=== PATIENT | female | born 2005 | race Caucasian/White ===

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

== ENCOUNTER 2023-04-11 20:33 | Outpatient (CLI) | payer OTHER, MEDICAID, SELFPAY ==
[2023-04-11] VITALS (12 sets, daily range): BP systolic 107–133; BP diastolic 56–77; PULSE 82–99; TEMP 36.3; BMI 26.9
[2023-04-11 21:03] LABS: Nitrazine Paper, PH Negative
[2023-04-11 21:20] LABS: Bacteria Urine 1+ /hpf; Bilirubin Urine Neg (Negative); Blood Urine Neg (Negative); Glucose Urine UA Norm (Normal); Ketones Urine Negative (Negative); Leukocyte Esterase Urine Negative (Negative); Nitrate Urine Negative (Negative); Protein Urine Neg (Negative); Specific Gravity, Urine 1.015 (1.005-1.030); Sulfosalicylic Acid Urine Negative (Negative); Urine Appearance Clear (CLEAR); Urine Color Yellow (Yellow); Urobilinogen Urine Norm (Negative); WBC Urine 0-4 /hpf (0-5); pH Urine 9 (5-7)
[2023-04-11 21:21] LABS: Add Urine Culture? No
[2023-04-11] MEDS: acetaminophen 500 mg Tablet 1000 MG PO (21:42)
[2023-04-11] MEDS: lactated ringers 1,000 ML 999 ML IV (21:42)
== END 2023-04-11 23:46 | disposition home or self-care (01) ==
LOC: OPOB 20:34 → OBGYN 20:35
PROVIDERS: PCP Registered Nurse; Visit Provider Family Medicine
DX: O26.899 Other specified pregnancy related conditions, unspecified trimester (principal); Z3A.00 Weeks of gestation of pregnancy not specified; N89.8 Other specified noninflammatory disorders of vagina
CPT/HCPCS: 36415; 59025; 81001; 83986; 99211; J7120

== ENCOUNTER 2023-04-13 02:38 | Outpatient (CLI) | payer OTHER, MEDICAID, SELFPAY ==
[2023-04-13] VITALS (7 sets, daily range): BP systolic 100–119; BP diastolic 56–75; PULSE 78–87; BMI 26.6
--- NOTE | 2023-04-13 03:30 | USR_ITS ---
PROCEDURE INFORMATION: Exam: US , Limited Exam date and time: 04/13/2023 4:11 AM Age: 17 years old Clinical indication: complicated by abdominal or pelvic pain; Lower; Third trimester (=28 weeks 0 days); Gestational age or lmp: 28 weeks 6days; ; Additional info: Decreased movement, possible leaking of fluid LABS AND CLINICAL REPORTS: Last menstrual period start date: 09/23/2022 Gestational age (Established): 28 w 6 d Estimated due date (Established): 06/30/2023 TECHNIQUE: Imaging protocol: Real-time ultrasound of the maternal uterus with image documentation. Exam focused on the clinical indication. COMPARISON: US OB >= 14 weeks fetus [id number] 02/25/2023 1:39 PM FINDINGS: Gestation: Single viable intrauterine gestation. heart rate: 150 bpm presentation: Cephalic presentation. Placenta: Anterior placenta. MATERNAL: Cervix: Cervical length measures 4.26 cm. US/US OB limited [id number] IMPRESSION: Single viable intrauterine gestation in cephalic presentation.
[2023-04-13 03:33] LABS: Add Urine Culture? No; Bacteria Urine 1+ /hpf; Bilirubin Urine Neg (Negative); Blood Urine Neg (Negative); Glucose Urine UA Norm (Normal); Ketones Urine 1+ (Negative); Leukocyte Esterase Urine Trace (Negative); Nitrate Urine Negative (Negative); Protein Urine Neg (Negative); Specific Gravity, Urine 1.005 (1.005-1.030); Urine Appearance Clear (CLEAR); Urine Color Yellow (Yellow); Urobilinogen Urine Neg (Negative); WBC Urine 0-4 /hpf (0-5); pH Urine 7 (5-7)
--- NOTE | 2023-04-13 04:25 | P.DS_ITS ---
Discharge Providers Date of Discharge: April 13, 2023 Attending Provider at Discharge: Aayush Jimenez MD Primary Care Provider: KATELIN Lucas Reason for Visit Reason for Visit: Decreased mvmt, possible ctx, possible SROM Hospital Course Hospital Course This is a 17-year-old G1, P0 that presents at 28 weeks 4 days with concerns of possible rupture. Patient has been having back and pelvic cramping since yesterday. No vaginal bleeding. Patient states that she has had a small amount of leakage of fluid, but denies any big gush. Patient states that there is decreased movement tonight. Spec was performed and no significant dila tion noted. Small amount of blood noted at cervical os but no fluid collection. Small amount of fluid was tested and was nitrazine negative as well as ferning was negative. Ultrasound was obtained and NICA was normal. heart tones were reassuring and no significant contractions were detected with toco. Contractions were palpated. Patient was reassured and patient was encouraged to use Tylenol and Benadryl to help with pain discomfort. Patient may also consider heating pad. Return to OB ED if problem arise. Physical Exam Const: COMMON NORMALS: no acute distress, average body habitus, patient oriented x3, alert and well nourished Resp: COMMON NORMALS: normal respiratory effort GI: OTHER: Gravid uterus : OB/EXTERNAL & SPECULUM: external exam normal OTHER: Small amount of blood noted at cervical os. Small amount of fluid with no significant collection. Nitrazine negative. Ferning negative Extremity: COMMON NORMALS: normal to inspection and no clubbing, cyanosis or edema Neuro: COMMON NORMALS: patient oriented x3 SENSORIUM/ORIENTATION: Yes alert Psych: COMMON NORMALS: mental status grossly normal, cooperative, normal affect and speech normal SPEECH: Yes normal speech Discharge Data Studies Completed and Pending Pending at discharge Category Date Time Status US OB limited [id number] Stat Ultrasound 04/13/23 03:30 Taken Laboratory Results Urine Color Yellow (Yellow) 04/13/23 02:50 Urine Appearance Clear (CLEAR) 04/13/23 02:50 Urine pH 7 (5-7) 04/13/23 02:50 Ur Specific [place] 1.005 (1.005-1.030) 04/13/23 02:50 Urine Protein Neg (Negative) 04/13/23 02:50 Urine Glucose (UA) Norm (Normal) 04/13/23 02:50 Urine Ketones 1+ (Negative) H 04/13/23 02:50 Urine Blood Neg (Negative) 04/13/23 02:50 Urine Nitrate Negative (Negative) 04/13/23 02:50 Urine Bilirubin Neg (Negative) 04/13/23 02:50 Urine Urobilinogen Neg mg/dL (Negative) 04/13/23 02:50 Ur Leukocyte Esterase Trace (Negative) H 04/13/23 02:50 Urine RBC None /hpf (0-2) 04/13/23 02:50 Urine WBC 0-4 /hpf (0-5) H 04/13/23 02:50 Ur Squamous Epith Cells 10-15 /hpf (0-5) H 04/13/23 02:50 Amorphous Sediment Not Reportable 04/13/23 02:50 Urine Bacteria 1+ /hpf (NONE) H 04/13/23 02:50 Vitals Last Vital Signs Pulse 78 04/13/23 03:54 BP 111/57 04/13/23 03:54 Discharge Plan Discharge Patient Disposition: Home Prescriptions: No Action No Known Home Medications Diet: Usual diet Activity: Limit activity as instructed Patient Instructions: Preeclampsia During (ED), Pelvic Rest (ED), at 27 to 30 Weeks (ED), OB Undelivered Discharge Discharge Attestations Time Spent in Discharge Care*: greater than 30 min Quality Metrics Clinical Quality Measures [ No reported AMI, CVA or VTE this stay] Coding Level of Care Code Acute Code for Chg Fwd Diagnoses
== END 2023-04-13 04:35 | disposition home or self-care (01) ==
LOC: OPOB 02:40 → OBGYN 02:43
PROVIDERS: PCP Registered Nurse; Visit Provider Family Medicine
DX: O36.8190 Decreased fetal movements, unspecified trimester, not applicable or unspecified (principal); Z3A.00 Weeks of gestation of pregnancy not specified; R10.9 Unspecified abdominal pain; N89.8 Other specified noninflammatory disorders of vagina
CPT/HCPCS: 59025; 76815; 81001; 83986; 99211

== ENCOUNTER 2023-04-15 15:20 | Outpatient (CLI) | payer OTHER, MEDICAID, SELFPAY ==
[2023-04-15 15:30] VITALS: BMI 26.2
[2023-04-15 15:36] VITALS: BP 122/68; PULSE 89
[2023-04-15 15:56] VITALS: BP 112/65; PULSE 93
[2023-04-15 16:10] LABS: Add Urine Culture? No; Bilirubin Urine Neg (Negative); Blood Urine Neg (Negative); Glucose Urine UA Norm (Normal); Ketones Urine 1+ (Negative); Mucus Urine 2+ /hpf; Nitrate Urine Negative (Negative); Protein Urine Neg (Negative); RBC Urine RARE /hpf (0-2); Squamous Epithelial Cell Urine 15-25 /hpf (0-5); Sulfosalicylic Acid Urine Negative (Negative); Urine Appearance Hazy (CLEAR); Urine Color Yellow (Yellow); Urobilinogen Urine Neg (Negative); WBC Urine 0-4 /hpf (0-5); pH Urine 8 (5-7)
[2023-04-15 16:11] LABS: Bacteria Urine 1+ /hpf
[2023-04-15 16:12] LABS: Leukocyte Esterase Urine 1+ (Negative)
[2023-04-15 16:17] VITALS: BP 115/71; PULSE 85
[2023-04-15 16:26] VITALS: BP 115/71; PULSE 85
== END 2023-04-15 16:25 | disposition home or self-care (01) ==
LOC: OPOB 15:28 → OBGYN 15:29
PROVIDERS: Absent Provider Family Medicine; Family Provider Family Medicine; PCP Registered Nurse; Visit Provider Family Medicine
DX: O26.899 Other specified pregnancy related conditions, unspecified trimester (principal); Z3A.00 Weeks of gestation of pregnancy not specified; R10.9 Unspecified abdominal pain
CPT/HCPCS: 59025; 81001; 99211

== ENCOUNTER 2023-05-12 16:48 | Outpatient (CLI) | payer OTHER, MEDICAID, SELFPAY ==
[2023-05-12 16:54] VITALS: BP 138/62; PULSE 88; RESP 17
[2023-05-12 16:56] VITALS: BMI 26.6
[2023-05-12 17:12] VITALS: BP 120/65; PULSE 79
[2023-05-12 17:36] VITALS: BP 120/65; PULSE 79
== END 2023-05-12 17:37 | disposition home or self-care (01) ==
LOC: OPOB 16:49 → OBGYN 16:50
PROVIDERS: Family Provider Family Medicine; PCP Registered Nurse; Visit Provider Family Medicine
DX: O26.899 Other specified pregnancy related conditions, unspecified trimester (principal); Z3A.00 Weeks of gestation of pregnancy not specified; M54.50 Low back pain, unspecified; R10.9 Unspecified abdominal pain
CPT/HCPCS: 59025; 99211

== ENCOUNTER 2023-06-10 02:48 | Outpatient (CLI) | payer OTHER, MEDICAID, SELFPAY ==
[2023-06-10] VITALS (8 sets, daily range): BP systolic 119–137; BP diastolic 64–78; PULSE 79–101; RESP 17; BMI 28.8
== END 2023-06-10 04:13 | disposition home or self-care (01) ==
LOC: OPOB 02:49 → OBGYN 02:49
PROVIDERS: Family Provider Family Medicine; PCP Registered Nurse; Visit Provider Family Medicine
DX: O26.899 Other specified pregnancy related conditions, unspecified trimester (principal); Z3A.00 Weeks of gestation of pregnancy not specified; R10.9 Unspecified abdominal pain
CPT/HCPCS: 59025; 99211

== ENCOUNTER 2023-06-15 21:37 | Outpatient (CLI) | payer OTHER, MEDICAID, SELFPAY ==
[2023-06-15 21:37] VITALS: BMI 29.0
[2023-06-15 21:51] VITALS: BP 130/72; PULSE 100
[2023-06-15 21:55] VITALS: TEMP 35.7
[2023-06-15 22:08] VITALS: BP 147/73; PULSE 98
[2023-06-15 22:22] VITALS: BP 120/62; PULSE 98
[2023-06-15 22:36] VITALS: BP 115/66; PULSE 71
[2023-06-15 22:51] VITALS: BP 117/75; PULSE 83
[2023-06-15] MEDS: acetaminophen 500 mg Tablet 1000 MG PO (23:03)
== END 2023-06-15 23:08 | disposition home or self-care (01) ==
LOC: OPOB 21:38 → OBGYN 21:38
PROVIDERS: Family Provider Family Medicine; PCP Registered Nurse; Visit Provider Family Medicine
DX: O26.899 Other specified pregnancy related conditions, unspecified trimester (principal); Z3A.00 Weeks of gestation of pregnancy not specified; R10.9 Unspecified abdominal pain
CPT/HCPCS: 59025; 83986; 99211

== ENCOUNTER 2023-06-21 07:15 | Outpatient (CLI) | payer OTHER, MEDICAID, SELFPAY ==
[2023-06-21 07:15] VITALS: BMI 29.5
[2023-06-21 07:22] VITALS: BP 137/69; PULSE 122
[2023-06-21 07:43] VITALS: BP 109/68; PULSE 92
== END 2023-06-21 07:55 | disposition home or self-care (01) ==
LOC: OPOB 07:16 → OBGYN 07:17
PROVIDERS: PCP Registered Nurse; Visit Provider Family Medicine
DX: O26.899 Other specified pregnancy related conditions, unspecified trimester (principal); Z3A.00 Weeks of gestation of pregnancy not specified; Z91.81 History of falling
CPT/HCPCS: 59025; 99211

== ENCOUNTER 2023-06-21 07:58 | Emergency (ER) | payer OTHER, SELFPAY ==
[2023-06-21 08:03] VITALS: BP 144/83; PULSE 84; RESP 18; TEMP 36.8; O2SAT 99; BMI 29.5
--- NOTE | 2023-06-21 08:08 | W.ED.BACK ---
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 States been having low back pain since then its worse with movement she rates it a 6 out of 10. Patient is 38 weeks she was cleared by OB. Rates her pain a 4 out of 10 denies any difficulty ambulating. Associated symptoms: Deny abdominal pain, chills, dysuria, fever(s), nausea or vomiting Review of Systems Const: Denies: fever(s), chills, body aches or change in appetite ENMT: Denies: throat pain or dental pain Card: Denies: chest pain Resp: Denies: dyspnea GI: Denies: abdominal pain, nausea, vomiting or diarrhea : Denies: dysuria Musc: Reports: back pain; Denies: neck pain Skin/Breast: Denies: rash Neuro: Denies: headache(s) PFSH ED PFSH: Social History Smoking and tobacco/nicotine status: never used tobacco/nicotine Physical Exam Const: COMMON NORMALS: no acute distress, patient oriented x3 and healthy appearing HENMT: COMMON NORMALS: normocephalic and atraumatic HEAD & SCALP: normocephalic and atraumatic Neck/C-Spine: COMMON NORMALS: full ROM and supple Chest: COMMONS NORMALS: normal inspection of the chest Resp: COMMON NORMALS: normal respiratory effort Cardio: COMMON NORMALS: regular rate, regular rhythm and No murmurs present (Cardio) RATE: regular rate RHYTHM: regular rhythm GI: COMMON NORMALS: Soft to palpation and no masses PALPATION: Yes Soft to palpation OTHER: gravid uterus Back/Pelvis: OTHER: Lower lumbar tenderness no midline tenderness Extremity: COMMON NORMALS: normal to inspection and full ROM Neuro: COMMON NORMALS: patient oriented x3, moves all extremities and no focal motor deficits Psych: COMMON NORMALS: mental status grossly normal, Normal thought process present and cooperative THOUGHT PROCESS: Normal thought process present Skin: COMMON NORMALS: no rashes or lesions noted and no wounds GENERAL SKIN EXAM: no rashes or lesions noted Course Vital Signs: Vital signs: Vital Signs Temperature 98.3 F 06/21/23 08:03 Pulse Rate 84 06/21/23 08:03 Respiratory Rate 18 06/21/23 08:03 Blood Pressure 144/83 06/21/23 08:03 Pulse Oximetry 99 06/21/23 08:03 Oxygen Delivery Me thod Room Air 06/21/23 08:03 MDM - Back Pain/Injury Medical Decision Making Patient presents here with low back pain she is well-appearing here she is stable for discharge she is to take Tylenol ice return if worsening. Medical Records I reviewed the patient's medical records. No radiology studies performed this visit Discharge Plan Discharge Patient Disposition: Home Clinical Impression: Low back strain Qualifiers: Encounter type: initial encounter Qualified Code(s): S39.012A - Strain of muscle, fascia and tendon of lower back, initial encounter Condition: Stable Prescriptions: No Action 60-0.8 mg Tablet 1 tab PO DAILY Discharge Orders: Discharge ED (Routine); Ordered 06/21/23 Ordered By: Latoya Turner Referrals: Pamela Penaloza FNP [Primary Care Provider] - Discharge Diet: Advance as tolerated Discharge Activity: Resume usual activity Patient Instructions: Low Back Strain (ED) Coding Level of Care Code ED Adult Basic Education Manager for Calli Zaragoza
[2023-06-21] MEDS: acetaminophen 325 mg Tablet 650 MG PO (08:13)
== END 2023-06-21 08:17 | disposition home or self-care (01) ==
PROVIDERS: Emergency Provider Emergency Medicine; PCP Registered Nurse
DX: O9A.213 Injury, poisoning and certain other consequences of external causes complicating pregnancy, third trimester (principal); S39.012A Strain of muscle, fascia and tendon of lower back, initial encounter; Z3A.38 38 weeks gestation of pregnancy; X50.1XXA Overexertion from prolonged static or awkward postures, initial encounter; Y99.0 Civilian activity done for income or pay
CPT/HCPCS: 99283

== ENCOUNTER 2023-06-26 04:08 | Inpatient (IN) | payer OTHER, MEDICAID, SELFPAY ==
[2023-06-25] VITALS (7 sets, daily range): BP systolic 128–133; BP diastolic 70–82; PULSE 82–108; RESP 16; TEMP 35.9–36.7; BMI 28.6
[2023-06-25 20:55] LABS: Actim Prom Positive
[2023-06-25 21:42] LABS: Basophils % 0.3 %; Eosinophils # 0.1 10^3/uL (0.0-0.8); Eosinophils % 0.9 %; Hematocrit 33.9 % (36-47); Lymphocytes # 1.5 10^3/uL (1.5-6.5); Lymphocytes % 14.6 %; Mean Corpuscular HGB Conc 30.1 g/dL (30-55); Mean Corpuscular Hemoglobin 23.2 pg (27-33); Mean Platelet Volume 10.6 fL (7.4-10.4); Monocytes # 0.7 10^3/uL (0.2-0.9); Monocytes % 6.7 %; Neutrophils # 7.78 10^3/uL (1.8-8.0); Nucleated Red Blood Cells % 0 %; Platelet Count 259 10^3/cmm (157-399); Red Cell Distribution Width 15.1 % (12.1-15.1); White Blood Count 10.11 10^3/uL (4.5-13.0)
[2023-06-25 23:32] LABS: Nitrazine Paper, PH Inconclusive
[2023-06-26] VITALS (121 sets, daily range): BP systolic 89–150; BP diastolic 43–102; PULSE 65–142; RESP 15–20; TEMP 35.5–37.7; O2SAT 97–100
[2023-06-26] MEDS: fentaNYL 50 mcg/mL INJ 2mL IVP ×3 (01:55→04:00)
[2023-06-26] MEDS: dextrose 5%-lactated ringers 1,000 ML 125 ML IV ×2 (03:58→13:43)
[2023-06-26] MEDS: lactated ringers 1,000 ML 999 ML IV ×3 (04:35→17:15)
[2023-06-26] MEDS: ondansetron 2 mg/ML SDV 2 mL 4 MG IVP ×3 (04:37→21:51)
[2023-06-26] MEDS: ROPivacaine syringe 100 MG/50 ML SYRINGE 10 MG EPIDURAL ×3 (05:45→13:42)
--- NOTE | 2023-06-26 05:53 | P.ANESASSM_ITS ---
Pre-Anesthetic Assessment Height/Weight: Height 1.75 m Weight 87.997 kg Temp Pulse Resp BP Pulse Ox O2 Del Method 96.6 F L 107 H 16 115/68 98 Room Air 06/25/23 22:53 06/26/23 05:51 06/26/23 04:00 06/26/23 05:47 06/26/23 05:51 06/26/23 05:00 Epidural Familial anesthetic complications: None Was Beta Leonarda taken within 24 hours: N/A Was Clonidine taken within 24 hours: N/A Social No alcohol and No tobacco Exam alert, oriented x 3, clear to auscultation bilaterally and regular rate & rhythm Airway Submandibular: within normal limits Cervical ROM: within normal limits Mallampati: Class III Dentition: full History/ROS No significant history except as noted and No significant complaints Pulmonary None reported CV/HEM None reported None reported Hepatic None reported GI None reported Metabolic None reported Musc/skel Lower Back Pain Neuropsych Anxiety Anesthetic Plan ASA status: 2 Anesthesia: Anesthesia Evaluation and Regional (specify below) (Epidural) Risk of > 500 ml blood loss (7ml/kg in children): No Medications/Allergies Home Medications Medication Instructions Recorded Confirmed Last Taken Type vit with calcium-iron 1 tab PO DAILY 04/13/23 06/15/23 06/15/23 History fum-folic acid 60 mg-0.8 mg tablet Allergies Allergy/AdvReac Type Severity Reaction Status Date / Time No Known Allergies Allergy Verified 06/21/23 08:08 Current Medications Generic Name Dose Route Start Last Admin Trade Name Freq PRN Reason Stop Dose Admin Fentanyl 25 - 100 mcg 06/25/23 21:16 06/26/23 04:00 Fentanyl 50 Mcg/Ml Inj 2ml IVP 75 mcg Q1H PRN Administration SEVERE PAIN Dextrose/Lactated Ringer's 1,000 mls @ 125 mls/hr 06/25/23 21:30 06/26/23 03:58 Dextrose 5%-Lactated Ringers IV 125 mls/hr .Q8H DUSTIN Administration Lactated Ringer's 1,000 mls @ 999 mls/hr 06/26/23 01:34 06/26/23 04:35 Lactated Ringers IV 999 mls/hr .Q1H1M PRN Administration See label comments Ondansetron HCl 4 mg 06/25/23 21:16 06/26/23 04:37 Ondansetron 2 Mg/Ml Sdv 2 Ml IVP 4 mg Q4H PRN Administration NAUSEA AND VOMITING PFSH Anesthesia Social History Smoking and tobacco/nicotine status: never used tobacco/nicotine Female Reproductive History : 1 Data Anesthesia 06/25/23 21:30 Short CBC 06/25/23 Range/Units 21:30 WBC 10.11 (4.5-13.0) 10^3/uL Hgb 10.20 L (12.4-14.8) g/dL Hct 33.9 L (36-47) % MCV 77.0 L (85-98) fl Plt Count 259 (157-399) 10^3/cmm Neut % (Auto) 77.0 % Neut # (Auto) 7.78 (1.8-8.0) 10^3/uL Blood Bank 06/25/23 21:00 Blood Type A Positive Rho(D) Type Rh positive Antibody Screen Negative Cardiac Studies: 2 No Data to Display
--- NOTE | 2023-06-26 05:55 | ANES.PROC ---
Anesthesia Procedures Procedure/Date: 06/26/23 Epidural: Time Out Performed: Yes Consents Signed: Procedure Consent and NPO Consent Consent: requested by attending/covering physician, from patient, risks and benefits reviewed and patient agrees to proceed Lumbar Level: L3-L4 Epidural position: sitting Epidural procedure: sterile prep of area (betadine), 1% lidocaine to numb the area (3 mLs), neg for paresthesia, test dose given, 1.5% xylocaine 1:200k epi (3 mL/2 mL), 0.2% Ropivacaine bolus ml (5 mLs), placed PCEA, no systemic response, sterile dressing applied, L.U.D. no apparent complications and 0.2% Ropiavacaine @ mls/hr (10 mLs/hr) Additional Comments: MAG 9cm, catheter threaded to 14cm, 100mcg fentanyl given via epidural after placement
--- NOTE | 2023-06-26 07:24 | P.HP_ITS ---
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 Patient states that she had a gush of fluid around 5 PM on June 25. On arrival the patient was amelia every 3 to 5 minutes. The patient was admitted for rupture of membranes and labor. Patient continued to to progress slowly overnight and this morning obtained a epidural for pain control. heart tones have been reassuring. Patient's care was unremarkable and appropriate. Patient is GBS negative Present Details : 1 Para: 0 Dating criteria OB: LMP confirmed by 1st trimester US care: good care Obstetrical complications: none Labs Rubella: Non-Immune RPR: Negative GBS: Negative HBsAG: Negative Review of Systems 2 Const: Denies: fever(s), chills, body aches or change in appetite ENMT: Denies: throat pain or dental pain Card: Denies: chest pain Resp: Denies: dyspnea GI: Denies: abdominal pain, nausea, vomiting or diarrhea : Denies: dysuria Musc: Reports: back pain; Denies: neck pain Skin/Breast: Denies: rash Neuro: Denies: headache(s) Medications/Allergies Home Medications Medication Instructions Recorded Confirmed Last Taken Type vit with calcium-iron 1 tab PO DAILY 04/13/23 06/26/23 06/15/23 History fum-folic acid 60 mg-0.8 mg tablet Allergies Allergy/AdvReac Type Severity Reaction Status Date / Time No Known Allergies Allergy Verified 06/21/23 08:08 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 2 PFSH: Social History Smoking and tobacco/nicotine status: never used tobacco/nicotine History History History 2 1 Term 0 0 Miscarriages/Ectopic 0 Living Children 0 Vitals/I&O/Wt Last Vital Signs Temp 96.6 F L 06/25/23 22:53 Pulse 72 06/26/23 07:22 Resp 16 06/26/23 04:00 BP 112/53 06/26/23 07:22 Pulse Ox 98 06/26/23 07:21 O2 Del Method Room Air 06/26/23 06:23 06/25/23 06/26/23 06/26/23 22:59 06:59 14:59 Intake Total 1000 / 1000 Balance 1000 / 1000 Weight last 48 hrs Weight 87.997 kg Physical Exam 2 Const: COMMON NORMALS: no acute distress, average body habitus, patient oriented x3, alert and well nourished Resp: COMMON NORMALS: normal respiratory effort GI: OTHER: Gravid uterus Extremity: COMMON NORMALS: normal to inspection and no clubbing, cyanosis or edema Neuro: COMMON NORMALS: patient oriented x3 SENSORIUM/ORIENTATION: Yes alert Psych: COMMON NORMALS: mental status grossly normal, cooperative, normal affect and speech normal SPEECH: Yes normal speech Urinary Catheter Management: Owens: Cath Placed During This Visit: yes Reason for Continuing Indwelling Catheter: Accurate Measurement of Urinary Output in Critically Ill Patients Urinary Catheter Date of Insertion: 06/26/23 Urinary Catheter Time of Insertion: 06:20 Data 06/25/23 21:30 Results Labs OB ([facility]): 2 Obstetrics 04/13/23 Blood Type A Positive 06/25/23 Antibody Screen Negative 06/25/23 Hct 33.9 % (36-47) L 06/25/23 Hgb 10.20 g/dL (12.4-14.8) L 06/25/23 Rho(D) Type Rh positive 06/25/23 Plt Count 259 10^3/cmm (157-399) 06/25/23 Hep Bs Antibody 3.5 (11.5-1000) L 11/20/21 Rubella IgG Antibody 12.1 IU/mL (0.0-10.0) H 11/20/21 VZV IgG Antibody 695.40 index 11/20/21 Ser , Semi-Qnt 80043.00 mIU/mL 12/26/22 A&P Assessment and plan (1) Primigravida in third trimester: (2) Rupture of membranes with clear amniotic fluid: Continue with routine labor management. If consistent change is not noted then we will augment labor with Pitocin. Plan for delivery within 24 hours rupture membranes. (3) 39 weeks gestation of : Attestations 2 Medical Necessity Statement*: Admit for labor and rupture of membranes. Anticipate 2 midnight stay. Coding Level of Care Code Acute Code for Chg Fwd Diagnoses Primigravida in third trimester Z34.03 Rupture of membranes with clear amniotic fluid 39 weeks gestation of Z3A.39
[2023-06-26] MEDS: ampicillin 2,000 MG in sodium chloride 0.9% (plus) 50 ML 100 MG IV (16:21)
[2023-06-26] MEDS: acetaminophen 325 mg Tablet 650 MG PO (16:22)
--- NOTE | 2023-06-26 17:14 | PM.OPHPUD ---
Labor & Delivery H&P Update Date of Procedure: June 26, 2023 Date H&P Performed: 06/26/23 Changes to previous documentation: The patient did progress to complete dilation. Patient had started pushing and pushed for 1.5 hours with no significant progress. Patient started developing and elevated temperature at 99 7 with chills. Patient was having [place] uterine tenderness. This was suspicious for chorioamnionitis the patient was started on amp and gent. Patient continues to push with no further progress over the next hour with no further change. Discussed options with the patient and she opted to proceed with primary low-transverse for failure to progress. Admission Diagnosis: Primary indication for procedure: Failure to progress Planned procedure: Primary low-transverse
--- NOTE | 2023-06-26 17:45 | PC.NURSE ---
VAGINAL PREP IN OR PRIOR TO CASE START
--- NOTE | 2023-06-26 18:45 | PM.OP ---
Operative Report Date of procedure: June 26, 2023 Pre-op diagnosis: Failure to progress, term intrauterine , prolonged rupture of membranes Post-op diagnosis: Same, viable female Procedure done: Primary low-transverse Surgeon: Aayush Jimenez MD Anesthesia: Epidural Estimated blood loss: 400cc IV fluids (mL): 700 Urine output: 200 Brief History: This is a 17-year-old G1, P1 presented at 39 weeks with rupture membranes. Patient had progressed to completion but was unable to delivery vaginally and was taken for primary low-transverse Procedure: Patient was taken to the operating room where epidural anesthesia was found to be adequate. She was prepped and draped in the normal sterile fashion in a dorsal supine position with a leftward tilt. Skin incision was made with scalpel and carried out to the underlying layer of fascia which was incised in the midline. Fascial incision was then extended laterally with Rasmussen scissors bilaterally. The superior aspect of the fascial incision was grasped with [place] clamps elevated and dissected off the rectus muscles with Rasmussen's. The inferior aspect of the fascial incision was grasped with [place]'s and in likewise manner was elevated and dissected off with Rasmussen's. Peritoneum was then entered digitally and extended with good visualization of the bladder. Bladder blade was then inserted. Uterine incision was then created in a transverse fashion in the lower uterine segment with scalpel and extended digitally. Amniotic sac was a round with Allis clamp. Clear fluid noted. 's head was delivered atraumatically nose and mouth suctioned with bulb, cord clamped and cut and handed off to waiting nursing staff. The placenta was then expressed and uterus exteriorized from the abdomen. And cleared of all clots and debris. Uterine incision was then repaired in a running locked fashion with 0 Vicryl. A second suture of the same was then used to imbricate the incision. Excellent hemostasis was noted. Uterus was then returned to the abdomen, gutters were cleared of all clots and debris and wound was irrigated. Peritoneum was then closed in a running fashion with 3-0 Vicryl. Fascia was then closed with 0 Vicryl in a running fashion. Subcutaneous tissue was closed with 3-0 Vicryl and skin was closed with 4-0 Monocryl on a Nazario needle. The incision was reinforced with Steri-Strips and pressure bandage was over the wound. Sponge, laps, and needle count was correct x2. Patient was given ampicillin prior to the procedure for treatment for chorioamnionitis. Patient was taken recovery in stable condition.
[2023-06-27] MEDS: ketorolac 30 mg/mL INJ IVP ×2 (01:27→08:35)
[2023-06-27 05:08] VITALS: TEMP 37.7
[2023-06-27] MEDS: HYDROcodone-acetaminophen 5-325 mg Tablet PO ×3 (05:30→20:25)
[2023-06-27] MEDS: docusate sodium 100 mg Capsule PO ×2 (07:47→20:23)
[2023-06-27] MEDS: prenatal vitamin Capsule 1 CAP PO (07:47)
[2023-06-27 08:30] VITALS: BP 110/78; PULSE 98; TEMP 37.3
[2023-06-27 08:35] LABS: Hematocrit 26.7 % (36-47); Mean Corpuscular HGB Conc 30.7 g/dL (30-55); Mean Corpuscular Hemoglobin 23.4 pg (27-33); Mean Corpuscular Volume 76.1 fl (85-98); Mean Platelet Volume 10.7 fL (7.4-10.4); Platelet Count 174 10^3/cmm (157-399); Red Blood Count 3.51 10^6/uL (3.85-5.65); Red Cell Distribution Width 15.5 % (12.1-15.1); White Blood Count 9.44 10^3/uL (4.5-13.0)
--- NOTE | 2023-06-27 10:41 | PM.OBGYPN ---
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 Patient is doing well. The patient is ambulating without difficulty. The patient is urinating with no issues. Lochia has been appropriate. Pain is well-controlled Labor: Station: +2 Amniotic Membrane Status: Leaking Monitor Mode: Palpation Contraction Pattern: Regular Status: Category II Post /CS: [place] baby status: doing well and nursing well [place] feeding status: exclusively breast feeding Vitals/I&O/Wt Last Vital Signs Temp 99.9 F H 06/27/23 05:08 Pulse 85 06/26/23 20:51 Resp 16 06/26/23 18:49 BP 125/56 06/26/23 20:51 Pulse Ox 98 06/26/23 08:01 O2 Del Method Room Air 06/26/23 18:40 06/26/23 06/27/23 06/27/23 22:59 06:59 14:59 Intake Total 1341.667 / 3441.667 1500 / 4941.667 Output Total 1000 / 2300 1150 / 3450 Balance 341.667 / 1141.667 350 / 1491.667 Weight last 48 hrs Weight 87.997 kg Physical Exam Const: COMMON NORMALS: no acute distress, average body habitus, patient oriented x3, alert and well nourished Resp: COMMON NORMALS: normal respiratory effort GI: OTHER: Gravid uterus Extremity: COMMON NORMALS: normal to inspection and no clubbing, cyanosis or edema Neuro: COMMON NORMALS: patient oriented x3 SENSORIUM/ORIENTATION: Yes alert Psych: COMMON NORMALS: mental status grossly normal, cooperative, normal affect and speech normal SPEECH: Yes normal speech Skin: NARRATIVE SKIN EXAM: Incision is covered by pressure bandage. No significant drainage noted. Urinary Catheter Management: Owens: Cath Placed During This Visit: yes, but has since been removed by the nurse Reason for Continuing Indwelling Catheter: Decision to DC Catheter Urinary Catheter Date of Insertion: 06/26/23 Urinary Catheter Time of Insertion: 17:45 Date Urinary Catheter Removed: 06/27/23 Time Urinary Catheter Discontinued: 04:53 Data 06/27/23 07:57 A&P Assessment and plan (1) care following delivery: Continue routine care. No concerns today. Attestations Medical Necessity Statement*: Patient admitted for labor and rupture membranes. Patient underwent primary low-transverse . Anticipate discharge tomorrow Coding Level of Care Code Acute Code for Chg Fwd Diagnoses care following delivery Z39.2
[2023-06-27 12:35] LABS: Chlamydia Trachomatis RNA TMA NOT DETECTED (NOT DETECTED); Neisseria Gonorrhoeae RNA, TMA NOT DETECTED (NOT DETECTED)
[2023-06-27] MEDS: ibuprofen 800 mg tablet PO ×2 (15:15→20:24)
[2023-06-27 16:30] VITALS: BP 109/70; PULSE 90; TEMP 36.9
[2023-06-27] MEDS: simethicone 80 mg Chew PO (20:23)
[2023-06-27 21:45] VITALS: BP 125/61; PULSE 112; RESP 18; O2SAT 97
[2023-06-27 22:30] VITALS: TEMP 36.7
[2023-06-28] MEDS: HYDROcodone-acetaminophen 5-325 mg Tablet PO ×4 (00:58→15:13)
[2023-06-28] MEDS: lanolin oint 7 gm 1 APPLIC TOPICAL (03:08)
[2023-06-28 04:50] VITALS: BP 128/66; PULSE 118; RESP 18; TEMP 37.4; O2SAT 100
--- NOTE | 2023-06-28 07:18 | P.DS_ITS ---
Discharge Providers Date of Admission: 06/26/23 04:08 Date of Discharge: June 28, 2023 Attending Provider at Admission: Aayush Jimenez MD Attending Provider at Discharge: Aayush Jimenez MD Primary Care Provider: KATELIN Lucas Diagnoses at Discharge Discharge Diagnosis (1) care following delivery: Status: Acute Reason for Visit Reason for Visit: Possible rupture of membranes Physical Exam Urinary Catheter Management: Owens: Cath Placed During This Visit: yes, but has since been removed by the nurse Reason for Continuing Indwelling Catheter: Decision to DC Catheter Urinary Catheter Date of Insertion: 06/26/23 Urinary Catheter Time of Insertion: 17:45 Date Urinary Catheter Removed: 06/27/23 Time Urinary Catheter Discontinued: 04:53 Discharge Data Studies Completed and Pending Laboratory Results WBC 9.44 10^3/uL (4.5-13.0) 06/27/23 07:57 RBC 3.51 10^6/uL (3.85-5.65) L 06/27/23 07:57 Hgb 8.20 g/dL (12.4-14.8) L 06/27/23 07:57 Hct 26.7 % (36-47) L 06/27/23 07:57 MCV 76.1 fl (85-98) L 06/27/23 07:57 MCH 23.4 pg (27-33) L 06/27/23 07:57 MCHC 30.7 g/dL (30-55) 06/27/23 07:57 RDW 15.5 % (12.1-15.1) H 06/27/23 07:57 Plt Count 174 10^3/cmm (157-399) 06/27/23 07:57 MPV 10.7 fL (7.4-10.4) H 06/27/23 07:57 Neut % (Auto) 77.0 % 06/25/23 21:30 Lymph % (Auto) 14.6 % 06/25/23 21:30 [place] % (Auto) 6.7 % 06/25/23 21:30 Eos % (Auto) 0.9 % 06/25/23 21:30 Baso % (Auto) 0.3 % 06/25/23 21:30 Neut # (Auto) 7.78 10^3/uL (1.8-8.0) 06/25/23 21:30 Lymph # (Auto) 1.5 10^3/uL (1.5-6.5) 06/25/23 21:30 [place] # (Auto) 0.7 10^3/uL (0.2-0.9) 06/25/23 21:30 Eos # (Auto) 0.1 10^3/uL (0.0-0.8) 06/25/23 21:30 Baso # (Auto) 0.0 10^3/uL (0.0-0.1) 06/25/23 21:30 Nucleated RBC % (auto) 0 % 06/25/23 21:30 Nucleated RBCs # 0.0 /100WBC 06/25/23 21:30 Insulin-like GF I Positive 06/25/23 20:30 Fluid pH (paper) Inconclusive 06/25/23 20:20 C.trachomatis RNA (TMA) Not detected (NOT DETECTED) 06/26/23 09:55 Chlamydia/GC Comment See note 06/26/23 09:55 N.gonorrhoeae RNA (TMA) Not detected (NOT DETECTED) 06/26/23 09:55 Blood Type A Positive 06/25/23 21:00 Rho(D) Type Rh positive 06/25/23 21:00 Antibody Screen Negative 06/25/23 21:00 Vitals Last Vital Signs Temp 99.4 F 06/28/23 04:50 Pulse 118 H 06/28/23 04:50 Resp 18 06/28/23 04:50 BP 128/66 06/28/23 04:50 Pulse Ox 100 06/28/23 04:50 O2 Del Method Room Air 06/28/23 04:50 Discharge Plan Discharge Patient Disposition: Home Condition: Stable Prescriptions: No Action 60-0.8 mg Tablet 1 tab PO DAILY Patient Instructions: Opioid Safety Coding Level of Care Code Acute Code for Chg Fwd Diagnoses care following delivery Z39.2
[2023-06-28] MEDS: ibuprofen 800 mg tablet PO ×3 (08:10→21:09)
[2023-06-28] MEDS: docusate sodium 100 mg Capsule PO ×2 (08:10→17:41)
[2023-06-28] MEDS: prenatal vitamin Capsule 1 CAP PO (08:10)
[2023-06-28] MEDS: ferrous sulfate EC 325 mg Tablet PO ×2 (08:11→17:41)
[2023-06-28] MEDS: amoxicillin-clav 875-125 mg Tablet 1 TAB PO ×2 (08:11→17:41)
[2023-06-28] MEDS: simethicone 80 mg Chew PO (13:30)
--- NOTE | 2023-06-28 14:19 | ANE.PACU2 ---
Inpatient post-anesthesia follow up: Airway intact: Yes Vital signs: Temperature 99.4 F Pulse Rate 118 Respiratory Rate 18 Blood Pressure 128/66 Pulse Oximetry 100 Oxygen Delivery Me thod Room Air Oxygen Flow Rate Fraction of Inspir ed Oxygen Hydration adequate: Yes Nausea and vomiting: No Pain level: 1 Mental status: Baseline Additional Comments: post spinal for and epidural for labor analagesia Epidural Start/End: Epidural Start Date: 06/26/23 Epidural Start Time: 05:16 Epidural End Date: 06/26/23 Epidural End Time: 17:25
[2023-06-28 15:15] VITALS: RESP 18; TEMP 36.7
--- NOTE | 2023-06-28 15:53 | PC.NURSE ---
see centricity for VS
[2023-06-28 22:20] VITALS: BP 120/58; PULSE 96; RESP 16; TEMP 36.6; O2SAT 97
[2023-06-29] MEDS: acetaminophen 325 mg Tablet 650 MG PO (02:07)
[2023-06-29] MEDS: HYDROcodone-acetaminophen 5-325 mg Tablet PO ×3 (05:00→16:21)
[2023-06-29 05:43] VITALS: BP 135/67; PULSE 100; RESP 17; TEMP 36.7; O2SAT 98
--- NOTE | 2023-06-29 08:00 | P.PN_ITS ---
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 Patient is having increasing abdominal pain this morning. Patient has had some elevated temperatures but no fevers. Patient was diagnosed with chorioamnionitis prior to delivery. Otherwise, lochia has been appropriate. All signs stable. Labor: Station: +2 Amniotic Membrane Status: Leaking Monitor Mode: Palpation Contraction Pattern: Regular Status: Category II Post /CS: baby status: doing well and nursing well [place] feeding status: exclusively breast feeding Vitals/I&O/Wt Last Vital Signs Temp 98.0 F 06/29/23 05:43 Pulse 100 06/29/23 05:43 Resp 17 06/29/23 05:43 BP 135/67 06/29/23 05:43 Pulse Ox 98 06/29/23 05:43 O2 Del Method Room Air 06/29/23 05:43 06/28/23 06/29/23 06/29/23 22:59 06:59 14:59 Intake Total 900 / 900 Output Total 800 / 800 Balance 100 / 100 Physical Exam 2 Const: COMMON NORMALS: no acute distress, average body habitus, patient oriented x3, alert and well nourished Resp: COMMON NORMALS: normal respiratory effort GI: COMMON NORMALS: Normal to inspection, nondistended, normoactive bowel sounds present and Soft to palpation PALPATION: Yes Soft to palpation, Yes Tenderness to palpation present (GI), No Guarding due to palpation present (GI), No Rigid due to palpation and No Rebound tenderness present Extremity: COMMON NORMALS: normal to inspection and no clubbing, cyanosis or edema Neuro: COMMON NORMALS: patient oriented x3 SENSORIUM/ORIENTATION: Yes alert Psych: COMMON NORMALS: mental status grossly normal, cooperative, normal affect and speech normal SPEECH: Yes normal speech Skin: NARRATIVE SKIN EXAM: Incision is covered by pressure bandage. No significant drainage noted. Urinary Catheter Management: Owens: Cath Placed During This Visit: yes, but has since been removed by the nurse Reason for Continuing Indwelling Catheter: Decision to DC Catheter Urinary Catheter Date of Insertion: 06/26/23 Urinary Catheter Time of Insertion: 17:45 Date Urinary Catheter Removed: 06/27/23 Time Urinary Catheter Discontinued: 04:53 Data 06/27/23 07:57 A&P Assessment and plan (1) care following delivery: Continue with routine care. (2) Endometritis: Start Augmentin for concerns of developing infection given history of chorioamnionitis Attestations 2 Medical Necessity Statement*: Patient admitted for labor and rupture membranes. Patient underwent primary low-transverse . Anticipate discharge tomorrow Coding Level of Care Code Acute Code for Chg Fwd Diagnoses care following delivery Z39.2 Endometritis N71.9
--- NOTE | 2023-06-29 08:04 | P.PN_ITS ---
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 Patient's abdominal pain has improved. Patient did pass single clot but no other concerning issues with bleeding. Patient is still ambulating and urinating without issues. Vital signs are stable. Labor: Station: +2 Amniotic Membrane Status: Leaking Monitor Mode: Palpation Contraction Pattern: Regular Status: Category II Post /CS: Patient comments OB post-: pain well controlled [place] baby status: doing well and nursing well feeding status: exclusively breast feeding Vitals/I&O/Wt Last Vital Signs Temp 98.0 F 06/29/23 05:43 Pulse 100 06/29/23 05:43 Resp 17 06/29/23 05:43 BP 135/67 06/29/23 05:43 Pulse Ox 98 06/29/23 05:43 O2 Del Method Room Air 06/29/23 05:43 06/28/23 06/29/23 06/29/23 22:59 06:59 14:59 Intake Total 900 / 900 Output Total 800 / 800 Balance 100 / 100 Physical Exam 2 Const: COMMON NORMALS: no acute distress, average body habitus, patient oriented x3, alert and well nourished Resp: COMMON NORMALS: normal respiratory effort GI: COMMON NORMALS: Normal to inspection, nondistended, normoactive bowel sounds present and Soft to palpation PALPATION: Yes Soft to palpation, Yes Tenderness to palpation present (GI), No Guarding due to palpation present (GI), No Rigid due to palpation and No Rebound tenderness present Extremity: COMMON NORMALS: normal to inspection and no clubbing, cyanosis or edema Neuro: COMMON NORMALS: patient oriented x3 SENSORIUM/ORIENTATION: Yes alert Psych: COMMON NORMALS: mental status grossly normal, cooperative, normal affect and speech normal SPEECH: Yes normal speech Skin: NARRATIVE SKIN EXAM: Incision is covered by pressure bandage. No significant drainage noted. Urinary Catheter Management: Owens: Cath Placed During This Visit: yes, but has since been removed by the nurse Reason for Continuing Indwelling Catheter: Decision to DC Catheter Urinary Catheter Date of Insertion: 06/26/23 Urinary Catheter Time of Insertion: 17:45 Date Urinary Catheter Removed: 06/27/23 Time Urinary Catheter Discontinued: 04:53 Data 06/27/23 07:57 A&P Assessment and plan (1) care following delivery: Continue with routine care. (2) Endometritis: Continue Augmentin. Attestations 2 Medical Necessity Statement*: Patient admitted for labor and rupture membranes. Patient underwent primary low-transverse . Anticipate discharge later today or possibly tomorrow. Coding Level of Care Code Acute Code for Chg Fwd Diagnoses care following delivery Z39.2 Endometritis N71.9
[2023-06-29] MEDS: prenatal vitamin Capsule 1 CAP PO (09:44)
[2023-06-29] MEDS: ibuprofen 800 mg tablet PO ×2 (09:44→16:20)
[2023-06-29] MEDS: docusate sodium 100 mg Capsule PO ×2 (09:44→17:09)
[2023-06-29] MEDS: ferrous sulfate EC 325 mg Tablet PO ×2 (09:44→17:09)
[2023-06-29] MEDS: amoxicillin-clav 875-125 mg Tablet 1 TAB PO ×2 (09:45→19:02)
[2023-06-29 10:13] VITALS: BP 132/71; PULSE 102; RESP 20; TEMP 37.8; O2SAT 99
[2023-06-29 13:00] VITALS: TEMP 36.6
[2023-06-29] MEDS: simethicone 80 mg Chew PO (17:09)
--- NOTE | 2023-06-29 18:47 | PC.NURSE ---
Called in Prescription to [facility] Valcyclovir 500mg BID x3days, no refills
[2023-06-29 19:50] VITALS: BP 122/65; PULSE 87; RESP 16; TEMP 36.7; O2SAT 99
[2023-06-29 20:21] VITALS: BP 122/65; PULSE 87; RESP 16; TEMP 36.7; O2SAT 99
--- NOTE | 2023-07-03 17:12 | PM.DCS ---
Discharge Providers Date of Admission: 06/26/23 04:08 Date of Discharge: July 03, 2023 Attending Provider at Admission: Aayush Jimenez MD Attending Provider at Discharge: Aayush Jimenez MD Primary Care Provider: KATELIN Lucas Diagnoses at Discharge Discharge Diagnosis (1) care following delivery: Status: Acute (2) Endometritis: Status: Acute Reason for Visit Reason for Visit: Possible rupture of membranes Hospital Course Hospital Course This is a 17-year-old G1, P1 that presented at 39 weeks with rupture membranes. Patient did progress slowly to completion. Once patient was complete the patient attempted to deliver vaginally but after 2 and half hours of pushing no significant progress was made. At this time it was 24 hours since rupture and the patient was developing fever and signs of chorioamnionitis. Patient had been started on IV antibiotics. The patient opted to proceed with at this time. The patient underwent primary low-transverse without difficulty or complication. The patient did have significant uterine pain and elevated temperature so the patient was continued on oral antibiotics. The patient was observed for an x-ray today due to this change. Otherwise her care was unremarkable. Breast-feeding was going well. Patient's lochia was appropriate. At the time the patient discharged patient's pain has significantly improved and she was no longer having any elevated temperatures. Physical Exam Const: COMMON NORMALS: no acute distress, average body habitus, patient oriented x3, alert and well nourished Resp: COMMON NORMALS: normal respiratory effort GI: COMMON NORMALS: Normal to inspection, nondistended, normoactive bowel sounds present and Soft to palpation PALPATION: Yes Soft to palpation, No Tenderness to palpation present (GI), No Guarding due to palpation present (GI), No Rigid due to palpation and No Rebound tenderness present Extremity: COMMON NORMALS: normal to inspection and no clubbing, cyanosis or edema Neuro: COMMON NORMALS: patient oriented x3 SENSORIUM/ORIENTATION: Yes alert Psych: COMMON NORMALS: mental status grossly normal, cooperative, normal affect and speech normal SPEECH: Yes normal speech Skin: NARRATIVE SKIN EXAM: Incision is covered by pressure bandage. No significant drainage noted. Urinary Catheter Management: Owens: Cath Placed During This Visit: yes, but has since been removed by the nurse Reason for Continuing Indwelling Catheter: Decision to DC Catheter Urinary Catheter Date of Insertion: 06/26/23 Urinary Catheter Time of Insertion: 17:45 Date Urinary Catheter Removed: 06/27/23 Time Urinary Catheter Discontinued: 04:53 Discharge Data Studies Completed and Pending Laboratory Results WBC 9.44 10^3/uL (4.5-13.0) 06/27/23 07:57 RBC 3.51 10^6/uL (3.85-5.65) L 06/27/23 07:57 Hgb 8.20 g/dL (12.4-14.8) L 06/27/23 07:57 Hct 26.7 % (36-47) L 06/27/23 07:57 MCV 76.1 fl (85-98) L 06/27/23 07:57 MCH 23.4 pg (27-33) L 06/27/23 07:57 MCHC 30.7 g/dL (30-55) 06/27/23 07:57 RDW 15.5 % (12.1-15.1) H 06/27/23 07:57 Plt Count 174 10^3/cmm (157-399) 06/27/23 07:57 MPV 10.7 fL (7.4-10.4) H 06/27/23 07:57 Neut % (Auto) 77.0 % 06/25/23 21:30 Lymph % (Auto) 14.6 % 06/25/23 21:30 [place] % (Auto) 6.7 % 06/25/23 21:30 Eos % (Auto) 0.9 % 06/25/23 21: Baso % (Auto) 0.3 % 06/25/23 21:30 Neut # (Auto) 7.78 10^3/uL (1.8-8.0) 06/25/23 21:30 Lymph # (Auto) 1.5 10^3/uL (1.5-6.5) 06/25/23 21:30 [place] # (Auto) 0.7 10^3/uL (0.2-0.9) 06/25/23 21:30 Eos # (Auto) 0.1 10^3/uL (0.0-0.8) 06/25/23 21:30 Baso # (Auto) 0.0 10^3/uL (0.0-0.1) 06/25/23 21:30 Nucleated RBC % (auto) 0 % 06/25/23 21:30 Nucleated RBCs # 0.0 /100WBC 06/25/23 21:30 Insulin-like GF I Positive 06/25/23 20:30 Fluid pH (paper) Inconclusive 06/25/23 20:20 C.trachomatis RNA (TMA) Not detected (NOT DETECTED) 06/26/23 09:55 Chlamydia/GC Comment See note 06/26/23 09:55 N.gonorrhoeae RNA (TMA) Not detected (NOT DETECTED) 06/26/23 09:55 Blood Type A Positive 06/25/23 21:00 Rho(D) Type Rh positive 06/25/23 21:00 Antibody Screen Negative 06/25/23 21:00 Vitals Last Vital Signs Temp 98.1 F 06/29/23 20:21 Pulse 87 06/29/23 20:21 Resp 16 06/29/23 20:21 BP 122/65 06/29/23 20:21 Pulse Ox 99 06/29/23 20:21 O2 Del Method Room Air 06/29/23 19:50 Discharge Plan Discharge Patient Disposition: Home Condition: Stable Prescriptions: Continued vit-iron fum-folic ac 60-0.8 mg Tablet 1 tab PO DAILY Discharge Orders: Discharge Order (Routine); Ordered 06/29/23 Ordered By: Aayush Jimenez Referrals: Aayush Jimenez MD [Physician] - (Call Dr Jimenez's office Saturday morning to schedule your 6 week follow-up appointment. [phone]) Discharge Diet: Usual diet Discharge Activity: Increase activity as tolerated and Limit activity as instructed Patient Instructions: , Depression (DC), Expression, Collection and Storage of Breast Milk (DC), How to Hold and Breastfeed Your Baby (DC), and Nipple Soreness (ED), and Breast Engorgement (DC), and Plugged Ducts (DC), and Your Diet (DC), Bleeding (DC), Preeclampsia and Eclampsia After Delivery (GEN), Breast Care for the Mother (DC), OB - [place], OB Discharge Report, OB Food/Drug Interaction Guide, OB Care at Home, Opioid Safety Discharge Attestations Time Spent in Discharge Care*: less than 30 min Quality Metrics Clinical Quality Measures [ No reported AMI, CVA or VTE this stay] Coding Level of Care Code Acute Code for Chg Fwd Diagnoses care following delivery Z39.2 Endometritis N71.9
== END 2023-06-29 20:02 | disposition home or self-care (01) | DRG 786 ==
LOC: OPOB 04:09 → OBGYN 04:09
PROVIDERS: Admitting Provider Family Medicine; PCP Registered Nurse; Visit Provider Family Medicine
PROC: 10D00Z1 Extraction of Products of Conception, Low, Open Approach (ICD-10-PCS; CPT 59514; principal; 2023-06-26 17:30)
DX: O63.1 Prolonged second stage (of labor) (principal); O41.1230 Chorioamnionitis, third trimester, not applicable or unspecified; O99.344 Other mental disorders complicating childbirth; F41.9 Anxiety disorder, unspecified; Z3A.39 39 weeks gestation of pregnancy; Z37.0 Single live birth
CPT/HCPCS: 36415; 51702; 59025; 59409; 83986; 84112; 85025; 85027; 86850; 86900; 87491; 87591; 96374; 96376; 98960; 99211; J0290; J1580; J1885; J2274; J2371; J2405; J2795; J3010; J3490; J7030; J7120; J7121